=== PATIENT | female | born 1935 | race Caucasian/White ===

== ENCOUNTER 2022-05-30 09:05 | Day surgery (SDC) | payer MEDICARE, OTHER ==
[~2022-05-30 09:05] MED LIST: Sodium Chloride 0.9% 10 ML Syringe FLUSH PRN
[2022-05-30 10:19] VITALS: BP 159/58; PULSE 56
== END 2022-05-30 10:29 | disposition home or self-care (01) ==
LOC: JP.SDS 09:05
PROVIDERS: ATTEND Ophthalmology
DX: H26.9 Unspecified cataract (principal); I10 Essential (primary) hypertension; E78.5 Hyperlipidemia, unspecified; E66.9 Obesity, unspecified; Z79.899 Other long term (current) drug therapy; Z88.0 Allergy status to penicillin; Z68.31 Body mass index [BMI] 31.0-31.9, adult
CPT/HCPCS: J3490; V2632